=== PATIENT | female | born 1980 | race Asian ===

== ENCOUNTER 2019-04-08 13:41 | Emergency (ER) | payer OTHER ==
[~2019-04-08] VITALS: Ht 160 cm; Wt 76.2 kg
[2019-04-08] MEDS ORDERED: HYDROCHLOROT12.5 M1 PO (13:49)
[2019-04-08] MEDS ORDERED: FLUOXETINE20 MG PO (13:50)
[2019-04-08] MEDS ORDERED: AMLODIPINE BESYLATE PO (13:50)
[2019-04-08] MEDS ORDERED: 904272561 PO (13:51)
[2019-04-08 15:02] VITALS: BP 155/96; TEMP 98
== END 2019-04-08 15:02 | disposition home or self-care (01) ==
LOC: ED 13:41
DX: T63.461A Toxic effect of venom of wasps, accidental (unintentional), initial encounter (principal)
CPT/HCPCS: 96372; 99283; J2930

== ENCOUNTER 2019-05-26 08:05 | Outpatient (CLI) | payer OTHER ==
[~2019-05-26 08:05] MED LIST: 904272561 PO; AMLODIPINE BESYLATE PO; FLUOXETINE20 MG PO; HYDROCHLOROT12.5 M1 PO
[2019-05-26 08:20] LABS: PLATELET COUNT 283 K/uL (152-353)
[2019-05-26 08:47] LABS: POTASSIUM 2.4 mmol/L (3.6-5.2)
== END 2019-05-26 19:28 | disposition home or self-care (01) ==
LOC: LABW 08:05
PROVIDERS: Physician Assistant
DX: I10 Essential (primary) hypertension (principal); K21.9 Gastro-esophageal reflux disease without esophagitis
CPT/HCPCS: 36415; 80053; 80061; 82306; 84439; 84443; 85027

== ENCOUNTER 2021-06-29 12:53 | Outpatient (CLI) | payer OTHER | END 2021-06-29 19:22 | disposition home or self-care (01) | LOC: RAD 12:53 | PROVIDERS: ATTEND Optometrist | DX: D86.9 Sarcoidosis, unspecified (principal) | CPT/HCPCS: 36415; 81374; 82164; 85652; 86003; 86038; 86592; 86618 ==

== ENCOUNTER 2021-11-14 08:47 | Outpatient (CLI) | payer OTHER | END 2021-11-14 18:58 | disposition home or self-care (01) | LOC: MAMMO 08:47 | PROVIDERS: ATTEND Obstetrics & Gynecology | DX: Z12.31 Encounter for screening mammogram for malignant neoplasm of breast (principal) ==

== ENCOUNTER 2022-05-17 13:27 | Outpatient (CLI) | payer OTHER ==
[2022-05-17 13:40] LABS: PLATELET COUNT 286 K/uL (152-353)
[2022-05-17 14:17] LABS: POTASSIUM 2.7 mmol/L (3.6-5.2)
== END 2022-05-17 19:16 | disposition home or self-care (01) ==
LOC: LAB 13:27
PROVIDERS: ATTEND Nurse Practitioner Family
DX: F41.8 Other specified anxiety disorders (principal); F32.9 Major depressive disorder, single episode, unspecified; I10 Essential (primary) hypertension; F98.8 Other specified behavioral and emotional disorders with onset usually occurring in childhood and adolescence; K21.9 Gastro-esophageal reflux disease without esophagitis; E78.49 Other hyperlipidemia; M19.90 Unspecified osteoarthritis, unspecified site; E55.9 Vitamin D deficiency, unspecified; F90.8 Attention-deficit hyperactivity disorder, other type; Z79.899 Other long term (current) drug therapy
CPT/HCPCS: 80053; 80061; 81002; 82306; 82607; 83036; 84439; 84443; 85027

== ENCOUNTER 2022-06-20 11:20 | Outpatient (CLI) | payer OTHER ==
[2022-06-20 12:06] LABS: PLATELET COUNT 247 K/uL (152-353)
[2022-06-20 12:29] LABS: POTASSIUM 3.1 mmol/L (3.6-5.2)
== END 2022-06-20 19:13 | disposition home or self-care (01) ==
LOC: LAB 11:20
PROVIDERS: ATTEND Nurse Practitioner Family
DX: D58.2 Other hemoglobinopathies (principal); E87.6 Hypokalemia
CPT/HCPCS: 80053; 83735; 85027

== ENCOUNTER 2022-06-26 17:04 | Outpatient (CLI) | payer OTHER ==
[2022-06-26 17:31] LABS: PLATELET COUNT 244 K/uL (152-353)
== END 2022-06-26 20:03 | disposition home or self-care (01) ==
LOC: LAB 17:04
PROVIDERS: ATTEND Nurse Practitioner Family
DX: D58.2 Other hemoglobinopathies (principal)
CPT/HCPCS: 85027

== ENCOUNTER 2022-07-26 17:06 | Outpatient (CLI) | payer OTHER ==
[2022-07-26 17:47] LABS: PLATELET COUNT 294 K/uL (152-353)
== END 2022-07-26 19:06 | disposition home or self-care (01) ==
LOC: LAB 17:06
PROVIDERS: ATTEND Nurse Practitioner Family
DX: D58.2 Other hemoglobinopathies (principal)
CPT/HCPCS: 85027

== ENCOUNTER 2022-10-29 13:59 | Outpatient (CLI) | payer OTHER ==
[2022-10-29 14:22] LABS: PLATELET COUNT 271 K/uL (152-353)
[2022-10-29 14:41] LABS: POTASSIUM 2.7 mmol/L (3.6-5.2)
== END 2022-10-29 21:42 | disposition home or self-care (01) ==
LOC: LAB 13:59
PROVIDERS: ATTEND Nurse Practitioner Family
DX: F41.9 Anxiety disorder, unspecified (principal); F32.9 Major depressive disorder, single episode, unspecified; F98.8 Other specified behavioral and emotional disorders with onset usually occurring in childhood and adolescence; I10 Essential (primary) hypertension; M19.90 Unspecified osteoarthritis, unspecified site; E55.9 Vitamin D deficiency, unspecified; D58.2 Other hemoglobinopathies; R53.82 Chronic fatigue, unspecified; F41.1 Generalized anxiety disorder; K21.9 Gastro-esophageal reflux disease without esophagitis; E78.49 Other hyperlipidemia; Z79.899 Other long term (current) drug therapy; R53.81 Other malaise
CPT/HCPCS: 80053; 80061; 82306; 83036; 84439; 84443; 85027

== ENCOUNTER 2022-11-29 13:18 | Outpatient (CLI) | payer OTHER ==
[2022-11-29 14:03] LABS: POTASSIUM 3.1 mmol/L (3.6-5.2)
[2022-11-29 14:07] LABS: PLATELET COUNT 295 K/uL (152-353)
== END 2022-11-29 17:00 | disposition home or self-care (01) ==
LOC: LAB 13:18
PROVIDERS: ATTEND Nurse Practitioner Family
DX: D58.2 Other hemoglobinopathies (principal); R79.89 Other specified abnormal findings of blood chemistry; E87.6 Hypokalemia
CPT/HCPCS: 80053; 83735; 85027

== ENCOUNTER 2023-03-12 15:02 | Outpatient (CLI) | payer OTHER ==
[2023-03-12 15:22] LABS: PLATELET COUNT 360 K/uL (152-353)
[2023-03-12 15:49] LABS: POTASSIUM 2.7 mmol/L (3.6-5.2)
== END 2023-03-12 20:35 | disposition home or self-care (01) ==
LOC: LAB 15:02
PROVIDERS: ATTEND Nurse Practitioner Family
DX: E78.49 Other hyperlipidemia (principal); I10 Essential (primary) hypertension; E66.9 Obesity, unspecified; F32.9 Major depressive disorder, single episode, unspecified; E87.6 Hypokalemia; R41.840 Attention and concentration deficit
CPT/HCPCS: 80053; 80061; 82306; 82670; 83036; 83735; 84403; 84439; 84443; 85027

== ENCOUNTER 2023-03-19 09:04 | Outpatient (CLI) | payer OTHER | END 2023-03-19 20:23 | disposition home or self-care (01) | LOC: MAMMO 09:04 | PROVIDERS: ATTEND Nurse Practitioner Family | DX: Z12.31 Encounter for screening mammogram for malignant neoplasm of breast (principal) ==